=== PATIENT | female | born 1990 | race Caucasian/White ===

== ENCOUNTER 2018-04-28 12:06 | Emergency (ER) | payer OTHER ==
[~2018-04-28] VITALS: Ht 165.1 cm; Wt 104.3 kg
[~2018-04-28 12:06] MED LIST: AZITHROMYCIN 2250 MG PO; CIPRO250 M1; FLEXERIL PO; HYDROCODONE-AP1 EAC6 PO; HYDROXYZINE HCL25 M1 PO; ONDANSETRON HCL4 M3 PO; PHENERGAN 25 MG25 M1 PO; PREDNISONE 20 M20 M1 PO; PROMETHAZINE-D120 ML PO; PROZAC 10 MG CA10 M1; TRAMADOL 50 MG50 MG; VENTOLIN HFA INH8 GM IH; ZOFRAN4 MG; ZPAK PO; [UNRECOGNIZED DRUG - OTHER]
[2018-04-28] MEDS ORDERED: UNICOMPLEX M TA1 TA1 PO (12:11)
[2018-04-28 13:00] LABS: ABSOLUTE LYMPHOCYTES 1.3 thou/uL (0.8-5.3); ABSOLUTE MONOCYTES 0.4 thou/uL (0.0-1.2); ABSOLUTE NEUTROPHILS 3.9 thou/uL (1.6-8.1); BASOPHILS 0.7 %; EOSINOPHILS 0.4 %; HEMATOCRIT 36.9 % (37.0-47.0); HEMOGLOBIN 12.1 gm/dL (12.0-15.0); LYMPHOCYTES 23.5 %; MCHC 32.9 g/dL (28.0-37.0); MCV 79.2 fL (80.0-100.0); MONOCYTES 7.3 %; MPV 10.4 fl. (7.2-11.1); NUCLEATED RBCS 0 /100WBC; PLATELET COUNT* 169 thou/uL (150-400); POLYS 68.1 %; RBC 4.67 mil/uL (4.20-5.00); RDW-CV 13.5 % (10.5-14.5); WBC 5.7 thou/uL (4.0-11.0)
[2018-04-28 13:06] LABS: CALCIUM 8.5 mg/dL (8.5-10.1); CREATININE 0.8 mg/dL (0.6-1.3); POTASSIUM 3.4 mmol/L (3.5-5.1)
[2018-04-28 13:11] LABS: ALBUMIN 3.7 g/dL (3.4-5.0); TOTAL BILIRUBIN 0.4 mg/dL (<0.1-1.0); TOTAL PROTEIN 7.1 g/dL (6.4-8.2)
[2018-04-28] MEDS ORDERED: AMITRIPTYLINE H25 M2 PO (14:28)
[2018-04-28 14:46] VITALS: BP 128/80
--- NOTE | 2018-04-30 12:45 | EKG ---
[place] [address] ELECTROCARDIOGRAM REPORT Name: RACHEAL DRIVER Room: [facility]#: [id number] Admission: 04/28/18 Attend Phys: Discharge: 04/28/18 Date of : [birth year] Report #: [id number] THIS REPORT FOR: //name// [facility] ED Test Date: 2018-04-28 Test Time: 12:13:35 Pat Name: RACHEAL DRIVER Department: Room: Gender: F Clergy Member: EVGENY : 1990 Requested By: Deandra Alvarez Order Number: [id number] MD: Ji Barboza Measurements Intervals [place] Rate: 92 P: 66 NM: 157 QRS: 47 QRSD: 87 T: 3 QT: 352 QTc: 436 Interpretive Statements Sinus rhythm Minimal ST depression, inferior leads Compared to ECG 07/31/2014 00:33:34 ST (T wave) deviation now present Sinus tachycardia no longer present Myocardial infarct finding no longer present Electronically Signed On 04-30-2018 12:44:52 CDT by Ji Barboza [email or web address] <ELECTRONICALLY SIGNED> By: Ji Barboza MD, LOCATED WITHIN [facility] 04/30/18 1244 1213 1213 Ji Barboza MD, [facility] /EPI
== END 2018-04-28 14:46 | disposition home or self-care (01) ==
LOC: M.ERS 12:06
PROVIDERS: Personal Emergency Response Attendant
DX: K21.9 Gastro-esophageal reflux disease without esophagitis (principal); F41.9 Anxiety disorder, unspecified; F32.9 Major depressive disorder, single episode, unspecified; Z88.2 Allergy status to sulfonamides

== ENCOUNTER 2018-08-17 23:37 | Emergency (ER) | payer OTHER ==
[~2018-08-17] VITALS: Ht 165.1 cm; Wt 99.8 kg
[~2018-08-17 23:37] MED LIST changes: +AMITRIPTYLINE H25 M2 PO; +HYDROXYZINE HCL25 M2 PO; +PROMETHAZINE V120 ML PO; +UNICOMPLEX M TA1 TA1 PO
[2018-08-17] MEDS ORDERED: LORAZEPAM 0.50.5 M1 (23:41)
[2018-08-18 00:10] LABS: URINE BILIRUBIN NEGATIVE (Negative); URINE BLOOD NEGATIVE (Negative); URINE CLARITY CLEAR; URINE COLOR YELLOW; URINE GLUCOSE-RANDOM NEGATIVE (Negative); URINE KETONES NEGATIVE (Negative); URINE LEUKOCYTES-REFLEX 1+ (Negative); URINE NITRITE-REFLEX NEGATIVE (Negative); URINE PROTEIN 1+ (Negative); URINE SPECIFIC GRAVITY >= 1.030 (1.005-1.030); URINE UROBILINOGEN 0.2 E.U./dl (0.2-1.0)
[2018-08-18 00:45] VITALS: BP 118/78
[2018-08-18 01:16] LABS: CASTS None Seen /LPF (None Seen); MUCUS 4-6 Moderate strn/LPF (None Seen); SQUAMOUS >10 Many /LPF (0-3); URINE WBC-REFLEX 6-15 Few /HPF (0-5)
[2018-08-18 01:17] LABS: CRYSTALS None Seen /LPF (None Seen); URINE RBC None Seen /HPF (0-2)
--- NOTE | 2018-08-18 13:49 | EKG ---
[place] [address] ELECTROCARDIOGRAM REPORT Name: JEAN DRIVEROKEAgusto COOPERLE [id number] Admission: 08/17/18 Attend Phys: Discharge: 08/18/18 Date of : [birth year] Report #: [id number] THIS REPORT FOR: //name// [facility] ED Test Date: 2018-08-17 Test Time: 23:43:06 Pat Name: RACHEAL DRIVER Department: Room: Gender: F Gynecological Assistant: EARNEST : 1990 Requested By: Deandra Bazzi Order Number: [id number] MD: Brando Lemos Measurements Intervals [place] Rate: 94 P: 75 AK: 155 QRS: 45 QRSD: 87 T: 9 QT: 352 QTc: 441 Interpretive Statements Sinus rhythm Compared to ECG 04/28/2018 12:13:35 no change Electronically Signed On 08-18-2018 13:49:09 PHYSICIAN ASSISTANT PSYCHIATRY by Brando Lemos [email or web address] <ELECTRONICALLY SIGNED> By: Brando Lemos MD, [facility] 08/18/18 1349 2343 2343 Brando Lemos MD, FACC /EPI
[2018-08-18] MEDS ORDERED: KEFLEX500 M1 PO (21:10)
== END 2018-08-18 00:48 | disposition home or self-care (01) ==
LOC: M.ERS 23:37
PROVIDERS: Physician Assistant
DX: F41.9 Anxiety disorder, unspecified (principal); N39.0 Urinary tract infection, site not specified; R05 Cough; F32.9 Major depressive disorder, single episode, unspecified; Z90.49 Acquired absence of other specified parts of digestive tract; Z88.2 Allergy status to sulfonamides